=== PATIENT | male | born 1990 | race Caucasian/White ===

== ENCOUNTER 2017-04-27 22:34 | Emergency (ER) | payer SELFPAY | END 2017-04-28 00:05 | disposition home or self-care (01) | LOC: D.ER 22:34 | DX: J11.1 Influenza due to unidentified influenza virus with other respiratory manifestations (principal) ==

== ENCOUNTER 2017-09-21 07:57 | Emergency (ER) | payer SELFPAY | END 2017-09-21 08:56 | disposition home or self-care (01) | LOC: D.ER 07:57 | DX: H11.421 Conjunctival edema, right eye (principal) ==

== ENCOUNTER 2017-11-09 22:55 | Emergency (ER) | payer MEDICAID ==
[~2017-11-09] VITALS: Ht 188 cm; Wt 102.3 kg
[2017-11-09 23:04] VITALS: Ht 188 cm; Wt 102.3 kg
[2017-11-09 23:42] LABS: APPEARANCE CLEAR (CLEAR); BILIRUBIN NEGATIVE (NEGATIVE); COLOR YELLOW (YELLOW); GLUCOSE NEGATIVE (NEGATIVE); KETONE NEGATIVE (NEGATIVE); NITRITE NEGATIVE (NEGATIVE); PROTEIN NEGATIVE (NEGATIVE); UROBILINOGEN NORMAL (NORMAL)
[2017-11-09 23:44] LABS: BACTERIA FEW /hpf (NONE SEEN); EPITHELIAL CELLS 0-5 /hpf (0-5); WHITE CELLS - URINE 0-5 /hpf (0-5)
[2017-11-10 00:07] LABS: ALBUMIN 4.4 g/dL (3.4-5.0); ALKALINE PHOSPHATASE 97 U/L (46-116); ALT (SGPT) 21 U/L (10-68); AMYLASE - SERUM 36 U/L (25-115); BILIRUBIN - TOTAL 0.59 mg/dL (0.2-1.3); CALC OSMOLALITY 274 mosm/kg (275-300); CALCIUM 8.9 mg/dL (8.5-10.1); CARBON DIOXIDE 27.5 mmol/L (21.0-32.0); CHLORIDE - SERUM 101 mmol/L (98-107); CREATININE - SERUM 0.9 mg/dL (0.6-1.3); GLUCOSE 90 mg/dL (74-106); LIPASE 90 U/L (73-393); POTASSIUM - SERUM 3.8 mmol/L (3.5-5.1); PROTEIN - SERUM 8.4 g/dL (6.4-8.2); SODIUM 138 mmol/L (136-145); UREA NITROGEN 9 mg/dL (7-18); eGFR NON AFRICAN AMERICAN > 90 mL/min (90-120)
[2017-11-10 00:08] LABS: HEMATOCRIT 46.1 % (42.0-54.0); LYMPHOCYTES 18.8 % (15-50); MCH 30.8 pg (26.0-34.0); MCHC 34.7 g/dL (31.0-37.0); MCV 88.8 fL (80.0-100.0); MEAN PLATELET VOLUME 11.6 fL (7.4-10.4); NEUTROPHILS 73.2 % (40-80); PLATELET COUNT 237 10x3/uL (130-400); RBC 5.19 10x6/uL (4.20-6.10); RDW 12.7 % (11.5-14.5)
[2017-11-10] MEDS ORDERED: LOMOTIL TABLET1 TAB PO (00:26)
[2017-11-10] MEDS ORDERED: PHENERGAN25 M1 PO (00:26)
[2017-11-10 00:52] VITALS: BP 131/69
== END 2017-11-10 01:38 | disposition home or self-care (01) ==
LOC: D.ER 22:55
PROVIDERS: Emergency Medicine
DX: A08.4 Viral intestinal infection, unspecified (principal); F17.200 Nicotine dependence, unspecified, uncomplicated

== ENCOUNTER → 2018-02-27 09:10 | Outpatient (CLI) | payer MEDICAID ==
[2017-11-09 23:04] VITALS: BMI 28.9
[~2018-02-27 09:10] MED LIST: LOMOTIL TABLET1 TAB PO; PHENERGAN25 M1 PO
== END | disposition home or self-care (01) ==
LOC: D.NM 09:10
DX: R10.13 Epigastric pain (principal)

== ENCOUNTER 2020-01-26 22:41 | Emergency (ER) | payer MEDICAID ==
[~2020-01-26] VITALS: Ht 188 cm; Wt 93.2 kg
[2020-01-26 22:46] VITALS: Ht 188 cm; Wt 93.2 kg
[2020-01-26 23:09] LABS: BASOPHILS 0.4 % (0-2); EOSINOPHILS 0.9 % (0-7); HEMATOCRIT 47.2 % (42.0-54.0); HEMOGLOBIN 16.3 g/dL (13.5-17.5); IMMATURE GRANULOCYTES 0.4 % (0-5); LYMPHOCYTES 18.2 % (15-50); MCH 31.5 pg (26.0-34.0); MCHC 34.5 g/dL (31.0-37.0); MCV 91.3 fL (80.0-100.0); MEAN PLATELET VOLUME 10.3 fL (7.4-10.4); MONOCYTES 9.8 % (2-11); NEUTROPHILS 70.3 % (40-80); PLATELET COUNT 256 10x3/uL (130-400); RBC 5.17 10x6/uL (4.20-6.10); RDW 12.6 % (11.5-14.5); WBC 10.2 10x3/uL (4.8-10.8)
[2020-01-26 23:19] LABS: CALC OSMOLALITY 272 mosm/kg (275-300); CALCIUM 9.3 mg/dL (8.5-10.1); CARBON DIOXIDE 28.3 mmol/L (21.0-32.0); CHLORIDE - SERUM 101 mmol/L (98-107); CREATININE - SERUM 0.9 mg/dL (0.6-1.3); GLUCOSE 103 mg/dL (74-106); POTASSIUM - SERUM 3.2 mmol/L (3.5-5.1); SODIUM 137 mmol/L (136-145); UREA NITROGEN 10 mg/dL (7-18); eGFR NON AFRICAN AMERICAN > 90 mL/min (90-120)
[2020-01-26 23:25] LABS: ALBUMIN 4.7 g/dL (3.4-5.0); ALKALINE PHOSPHATASE 84 U/L (30-120); ALT (SGPT) 28 U/L (10-68); AMYLASE - SERUM 35 U/L (25-115); BILIRUBIN - TOTAL 1.01 mg/dL (0.2-1.3); LIPASE 60 U/L (73-393); PROTEIN - SERUM 8.1 g/dL (6.4-8.2)
[2020-01-26 23:56] LABS: BILIRUBIN NEGATIVE (NEGATIVE); KETONE NEGATIVE (NEGATIVE); NITRITE NEGATIVE (NEGATIVE); UROBILINOGEN NORMAL mg/dL (< 2)
[2020-01-27] MEDS ORDERED: ZOFRAN4 MG PO (00:44)
[2020-01-27] MEDS ORDERED: HYDROCODON-ACE1 EAC7 PO (00:44)
[2020-01-27 01:16] VITALS: BP 117/59
== END 2020-01-27 01:15 | disposition home or self-care (01) ==
LOC: D.ER 22:41
PROVIDERS: Family Medicine
DX: R10.9 Unspecified abdominal pain (principal); J45.909 Unspecified asthma, uncomplicated

== ENCOUNTER 2020-02-11 10:07 | Day surgery (SDC) | payer SELFPAY ==
[~2020-02-11] VITALS: Ht 188 cm; Wt 88.0 kg
[~2020-02-11 10:07] MED LIST changes: +HYDROCODON-ACE1 EAC7 PO; +ZOFRAN4 MG PO
[2020-02-11 11:01] VITALS: BP 122/73; Ht 188 cm; Wt 88.0 kg
--- NOTE | 2020-02-11 13:30 | NUR ---
PATIENT STILL GROGGY. STATES HE IS HURTING AND VERY SORE. STATES 6/10 PAIN. STATES MINIMAL RELIEF AFTER 1.5 MG OF DILAUDED. EDUCATED ON OVERSEDATION. EDUCATED ON MEDS GIVEN IN OUTPATIENT. PATIENT IS AWAKE ALERT. PROVIDED ABD PILLOW BC HE NEEDED TO COUGH.ABD BINDER ON
--- NOTE | 2020-02-11 14:07 | NUR ---
1350 PATIENT AWAKE ABLE TO ANSWER QUESTIONS. REQUESTED ICE CHIPS. STATES PAIN IS 6/10. SITTING UP STRAIGHT IN STRETCHER WANTING TO GO BACK OUT TO OUTPAITENT
== END 2020-02-11 15:05 | disposition home or self-care (01) ==
LOC: D.OPS 10:07
PROVIDERS: ATTEND Surgery
DX: K82.8 Other specified diseases of gallbladder (principal); R10.11 Right upper quadrant pain

== ENCOUNTER 2020-09-24 11:51 | Emergency (ER) | payer BC ==
[~2020-09-24] VITALS: Ht 188 cm; Wt 97.7 kg
[2020-09-24 11:53] VITALS: BP 115/77; Ht 188 cm; Wt 97.7 kg
[2020-09-24] MEDS ORDERED: HYDROCODON-ACE1 EAC7 PO (12:16)
[2020-09-24] MEDS ORDERED: MOBIC7.5 MG PO (12:16)
[2020-09-24] MEDS ORDERED: METHOCARBAMOL500 MG PO (12:16)
== END 2020-09-24 12:26 | disposition home or self-care (01) ==
LOC: D.ER 11:51
DX: M54.12 Radiculopathy, cervical region (principal); M54.2 Cervicalgia

== ENCOUNTER → 2020-10-23 08:14 | Outpatient (CLI) | payer BC ==
[2020-09-24 11:53] VITALS: BMI 27.6
[~2020-10-23 08:14] MED LIST changes: +METHOCARBAMOL500 MG PO; +MOBIC7.5 MG PO
== END | disposition home or self-care (01) ==
LOC: D.MRI 10-09 08:30
PROVIDERS: ATTEND Nurse Practitioner Family
DX: M54.12 Radiculopathy, cervical region (principal)